=== PATIENT | female | born 1990 | race Caucasian/White ===

== ENCOUNTER 2017-03-04 10:33 | Inpatient (IN) ==
[2017-03-04] MEDS ORDERED: MEPERIDINE 50 MG/1 ML VIAL IM PRN (10:53)
[2017-03-04 11:33] LABS: Basophils % 0.2 % (0.0-0.8); Eosinophils # 0.1 10*3/uL (0.0-0.87); Eosinophils % 0.8 % (0.00-10.9); Hematocrit 36.1 VOL% (35.7-47.0); Hemoglobin 12.6 GM/DL (12.0-16.0); Immature Granulocytes % 0.6 %; Immature Granulocytes Absolute 0.07 #; Lymphocytes # 2.1 10*3/uL (1.4-4.0); Mean Corpuscular HGB Conc 34.9 GM/DL (32-36); Mean Corpuscular Hemoglobin 30 PG (27-34); Mean Corpuscular Volume 85.5 FL (87-102); Mean Platelet Volume 10.4 FL (9.6-12.0); Monocytes # 0.8 10*3/uL (0.11-0.8); Monocytes % 6.8 % (1.7-12.7); Neutrophils # 8.7 10*3/uL (1.4-7.4); Neutrophils % 73.6 % (38.7-73.9); Platelet Count 218 T/CUMM (130-400); Red Blood Count 4.22 MC/CUMM (3.8-5.5); Red Cell Distribution Width 13.6 % (9.3-17.3); White Blood Count 11.8 T/CUMM (4-12)
[2017-03-04] MEDS: LACTATED RINGERS 1,000 ML IV SCH ×3 (11:45→23:37)
[2017-03-04 12:06] LABS: Alanine Aminotransferase 14 U/L (13-56); Albumin 2.9 G/DL (3.4-5.0); Alkaline Phosphatase 134 U/L (45-117); Aspartate Amino Transferase 13 U/L (0-37); Bilirubin,Total < 0.39 MG/DL (0.2-1.0); Blood Urea Nitrogen 6 MG/DL (7-18); Calcium 8.4 MG/DL (8.5-10.1); Glucose 97 MG/DL (74-106); Osmolality,Calculated 272.7 MOS/KG (273-304); Potassium 3.8 MMOL/L (3.5-5.1); Sodium 138 MMOL/L (136-145); Total Protein 7.7 G/DL (6.4-8.3); Uric Acid 4.7 MG/DL (2.6-6.0)
[2017-03-04] MEDS ORDERED: MEPERIDINE 50 MG/1 ML VIAL IV PRN (21:04)
[2017-03-04] MEDS: ONDANSETRON 4 MG/2 ML VIAL IV PRN (21:06)
[2017-03-04] MEDS: BUTORPHANOL 2 MG/ML VIAL IV PRN (23:33)
[2017-03-05] MEDS ORDERED: OXYTOCIN/LR 30 UNIT/1,000 ML BAG IV ONE (02:08)
[2017-03-05] MEDS ORDERED: OXYTOCIN/LR 20 UNIT/1,000 ML BAG IV ONE ×3 (02:32→08:51)
[2017-03-05] MEDS: ONDANSETRON 4 MG/2 ML VIAL IV PRN (02:36)
[2017-03-05] MEDS: BUTORPHANOL 2 MG/ML VIAL IV PRN (02:38)
[2017-03-05] MEDS ORDERED: OXYTOCIN/LR 20 UNIT/1,000 ML BAG IV SCH (03:00)
[2017-03-05] MEDS ORDERED: CITRIC ACID/SODIUM CITRATE 30 ML UDCUP PO ONE (03:10)
[2017-03-05] MEDS ORDERED: FAMOTIDINE 20 MG/2 ML VIAL IV ONE (03:10)
[2017-03-05] MEDS ORDERED: ePHEDrine 50 MG/ML AMP IV PRN (03:10)
[2017-03-05] MEDS ORDERED: fentaNYL 2 MCG/ROPIV 0.2% EPID 150 ML EPIDURAL SCH (03:11)
[2017-03-05] MEDS: LACTATED RINGERS 1,000 ML IV SCH (05:05)
[2017-03-05] MEDS ORDERED: TERBUTALINE 1 MG/1 ML VIAL SUBCUT ONE (05:57)
[2017-03-05] MEDS ORDERED: TERBUTALINE 1 MG/1 ML VIAL SUBCUT PRN (06:00)
[2017-03-05 06:38] LABS: Apearance,Urine Slightly Hazy (Clear); Bacteria,Urine Occasional /HPF (Few); Bilirubin,Urine Negative (Negative); Blood, Urine Negative (Negative); Glucose,Urine (UA) Negative (Negative); Ketones,Urine 80 mg/dL (Negative); Mucus,Urine Few /LPF (Occasional); Nitrite,Urine Negative (Negative); Protein,Urine 30 MG/DL; RBC,Urine 3 /HPF (0-4); Squamous Epithelial Cell,Urine Occasional /HPF (0-10); Urine Color Yellow (Yellow); Urine Specific Gravity 1.018 (1.001-1.035); Urine Urobilinogen < 2.0 EU/DL (0.2-1.0); WBC,Urine 5 /HPF (0-6)
[2017-03-05] MEDS ORDERED: PROMETHAZINE 25 MG/1 ML VIAL IM PRN (07:03)
[2017-03-05] MEDS ORDERED: ceFAZolin 2,000 MG in PREMIX 1 EACH IV ONE (08:04)
--- NOTE | 2017-03-05 08:14 | OB/GYN History & Physical ---
History of Present Illness Chief complaint: 39 weeks History of present illness: Ms. Knight is a 26 year old female Primigravida admitted at 39 weeks gestation for induction of labor at term. Patient complains of insomnia and overall exhaustion due to inability to sleep Home Medications Medication Instructions Recorded Confirmed Type Ferrous Sulfate [Iron] 1 tablet PO DAILY 03/04/17 03/04/17 History Vits #90/Iron Fum/FA 1 tablet PO DAILY 03/04/17 03/04/17 History [ Formula Tablet] Allergies Allergy/AdvReac Type Severity Reaction Status Date / Time No Known Allergies Allergy Verified 03/04/17 10:51 12 point system: reviewed and no additional remarkable complaints except as stated Medical,Surgical,& Family Hx - Surgical History Thoracic Surgeries: Patient denies;: Organ Transplant - Family History Family History: Reports;: Family Diabetes (MGM, PGM) Denies;: Family Anesthesia Reaction, Family Cancer, Family Heart Disease, Family Hematology, Family Hypertension, Family Psychiatric Problems, Family Stroke, Additional Family History - Social History Smoking Status: Never smoker Frequency of Alcohol Use: None 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 - Constitutional Vitals: Vital Signs Temp Pulse Resp BP Pulse Ox 03/05/17 04:00 97.4 F L 76 22 141/68 03/05/17 00:00 97.1 F L 74 18 130/78 03/04/17 20:00 97.8 F 90 20 143/78 03/04/17 16:00 98.2 F 97 H 20 122/58 03/04/17 12:00 97.4 F L 101 H 18 119/73 97 General appearance: mild distress - Antepartum / Post Antepartum Exam Cervix - Dilatation: 3 cm Effacement: 70% Station: -1 Rupture: Spontaneous rupture membranes with clear fluid Presentation: Vertex Heart Rate: Baseline 140s with repetitive late decelerations [place]: contractions every 2-3 minutes - Head Head exam: Present: normocephalic - Neck Neck exam: Present: normal inspection - Respiratory Respiratory exam: Present: clear to auscultation bilaterally - Cardiovascular Cardiovascular exam: Present: regular rate and rhythm - GI/Abdominal GI/Abdominal exam: Present: normal bowel sounds, soft - Extremities Exam Extremities exam: Present: normal inspection - Back Exam Back exam: Present: normal inspection - Neurological Exam Neurological exam: Present: alert, oriented X3 - Psychiatric Psychiatric exam: Present: normal affect, normal mood - Skin Skin exam: Present: normal color, warm Assessment and Plan (1) 39 weeks gestation of Status: Acute Current Visit: Yes (2) Late deceleration of heart rate Status: Acute Assessment and plan: Despite intrauterine resuscitative measures, the patient continued to have late decelerations prompting for decision proceed with section. Patient and family in agreement with management plan. Patient prepped for section Current Visit: Yes Results - Labs CBC & BMP: 03/04/17 11:21 03/04/17 11:21
[2017-03-05] MEDS ORDERED: RHO(D) IMMUNE GLOBULIN 300 MCG SYRINGE IM ONE (08:51)
[2017-03-05] MEDS ORDERED: ACETAMINOPHEN 325 MG TABLET PO PRN (08:51)
[2017-03-05] MEDS ORDERED: ONDANSETRON 4 MG/2 ML VIAL IV PRN (08:51)
--- NOTE | 2017-03-05 08:57 | Operative Note ---
Date of procedure: 03/05/17 Procedure Preformed: Following informed consent patient taken to the operating room where epidural anesthesia was found to be adequate. She is prepped and draped in usual fashion placed in dorsal supine position with a leftward tilt. A Pfannenstiel skin incision made with scalpel and carried through to the underlying layer fascia with Bovie. The fascia incision was excised in the midline and extended laterally with Phelps scissors.. The inferior and superior aspects of the fascial incision were grasped with [place] clamps, elevated and the rectus muscles dissected off bluntly. The rectus muscles were then in the midline and the peritoneum identified and entered with Metzenbaum scissors. This was then extended superiorly and inferiorly with good visualization of the bladder. The bladder blade was then inserted and the vesicouterine peritoneum identified and entered with Metzenbaum scissors. This was then extended laterally and the bladder flap created digitally. The bladder blade was then reinserted and the uterus incised in transverse fashion with scalpel. The infant's head was then delivered atraumatically. The nose mouth bulb suctioned. Cord clamped cut and the handed off to waiting nurses. Cord blood was sent. The placenta was then removed manually and the uterus cleared all clots and debris. The uterine incision was repaired with #1 Vicryl in a running locked fashion. A second layer of the same suture was used to obtain excellent hemostasis. The gutters were cleared of all clots and debris and once again hemostasis was found to be satisfactory. Therefore all instruments were removed from the abdomen. The fascia was repaired with [0] Vicryl in a running fashion. The skin was closed with Ensorb cesar. At the end of the procedure all sponge lap needle counts correct 2. Baby and mother in stable condition. Surgeon / Physician: Beverly Burleson Post-op diagnosis: same Findings: Liveborn male infant weight 8 lbs. 8 oz. Apgars 6 and 7 Specimens: other (Cord blood) Estimated blood loss: other (400 mL) Condition: stable Anesthesia: epidural Disposition: floor
[2017-03-05 08:58] LABS: Cord Arterial Blood HCO3 13.4 MMOL/L
[2017-03-05] MEDS ORDERED: LACTATED RINGERS 1,000 ML IV SCH (09:00)
[2017-03-05] MEDS ORDERED: fentaNYL 100 MCG/2 ML VIAL ONE (09:00)
[2017-03-05 09:03] LABS: Cord Venous Blood HCO3 13.9 MMOL/L; Cord Venous Blood PCO2 86.5 MMHG
[2017-03-05 09:16] LABS: Cord Venous Blood PO2 6.7
[2017-03-05] MEDS: IBUPROFEN 800 MG TABLET PO PRN ×2 (12:51→21:16)
[2017-03-05 16:43] LABS: Basophils % 0.2 % (0.0-0.8); Eosinophils % 0.2 % (0.00-10.9); Hematocrit 32.7 VOL% (35.7-47.0); Hemoglobin 11.4 GM/DL (12.0-16.0); Immature Granulocytes % 0.7 %; Immature Granulocytes Absolute 0.12 #; Lymphocytes # 2.6 10*3/uL (1.4-4.0); Lymphocytes % 14.4 % (21.3-54.2); Mean Corpuscular HGB Conc 34.9 GM/DL (32-36); Mean Corpuscular Hemoglobin 30 PG (27-34); Mean Corpuscular Volume 84.9 FL (87-102); Mean Platelet Volume 10.5 FL (9.6-12.0); Monocytes # 1.4 10*3/uL (0.11-0.8); Monocytes % 7.6 % (1.7-12.7); Neutrophils # 13.9 10*3/uL (1.4-7.4); Neutrophils % 76.9 % (38.7-73.9); Platelet Count 168 T/CUMM (130-400); Red Blood Count 3.85 MC/CUMM (3.8-5.5); Red Cell Distribution Width 13.6 % (9.3-17.3)
[2017-03-05] MEDS: MULTIVITAMIN (PRENATAL) TABLET PO SCH (21:00)
[2017-03-05] MEDS: DOCUSATE SODIUM 100 MG CAPSULE PO SCH (21:16)
[2017-03-06 06:30] LABS: Basophils % 0.2 % (0.0-0.8); Eosinophils # 0.2 10*3/uL (0.0-0.87); Eosinophils % 1.2 % (0.00-10.9); Hematocrit 31.3 VOL% (35.7-47.0); Hemoglobin 10.5 GM/DL (12.0-16.0); Immature Granulocytes % 0.6 %; Immature Granulocytes Absolute 0.08 #; Lymphocytes % 15.3 % (21.3-54.2); Mean Corpuscular HGB Conc 33.5 GM/DL (32-36); Mean Corpuscular Hemoglobin 29 PG (27-34); Mean Corpuscular Volume 86.9 FL (87-102); Mean Platelet Volume 10.4 FL (9.6-12.0); Monocytes % 7.7 % (1.7-12.7); Platelet Count 143 T/CUMM (130-400); Red Cell Distribution Width 13.7 % (9.3-17.3); White Blood Count 13.3 T/CUMM (4-12)
[2017-03-06 06:52] LABS: Hypochromasia Slight; Lymphocytes 8 % (20-55); Platelet Estimate Adequate; Segmented Neutrophils 86 % (50-85); Total Cells Counted 100
--- NOTE | 2017-03-06 08:03 | OB/GYN Progress Note ---
Assessment and Plan (1) 39 weeks gestation of Status: Acute Current Visit: Yes (2) Late deceleration of heart rate Status: Acute Assessment and plan: Despite intrauterine resuscitative measures, the patient continued to have late decelerations prompting for decision proceed with section. Patient and family in agreement with management plan. Patient prepped for section Current Visit: Yes (3) Delivered by section Status: Acute Assessment and plan: Routine and postoperative care Current Visit: Yes AWNING SPREADER - PN: Subj Interval history: No complaints. Pain well controlled. Patient is attempting to breast-feed. Exam AWNING SPREADER - Constitutional Vitals: Vital Signs Temp Pulse Resp BP Pulse Ox 03/06/17 07:34 97.3 F L 91 H 20 121/75 97 03/06/17 06:00 20 03/06/17 05:00 18 03/06/17 04:00 97.2 F L 85 18 120/83 99 03/06/17 03:00 18 03/06/17 02:00 18 03/06/17 01:00 18 03/06/17 00:00 98.1 F 93 H 18 136/76 99 03/05/17 23:00 18 03/05/17 20:00 97.5 F L 81 20 106/64 99 03/05/17 18:29 20 03/05/17 17:45 20 03/05/17 17:00 20 03/05/17 15:48 97.8 F 83 18 119/71 97 03/05/17 13:30 97.8 F 85 18 130/65 96 03/05/17 12:30 99.1 F 84 18 130/78 99 03/05/17 12:00 84 18 122/75 98 03/05/17 11:30 98.1 F 82 18 125/75 97 General appearance: no acute distress - Gyencological / Post Surgical Post Surgical Exam Extremities AWNING SPREADER: Present: normal Abdomen obstetrics progress note: Present: normal appearance, soft Incision OB: Present: normal, intact - Head Head exam: Present: normocephalic - Neck Neck exam: Present: normal inspection - Respiratory Respiratory exam: Present: clear to auscultation bilaterally - Cardiovascular Cardiovascular exam: Present: regular rate and rhythm - GI/Abdominal GI/Abdominal exam: Present: normal bowel sounds, soft (Uterus firm and well contracted at the level of the umbilicus) - Extremities Exam Extremities exam: Present: normal inspection - Back Exam Back exam: Present: normal inspection - Neurological Exam Neurological exam: Present: alert, oriented X3 - Psychiatric Psychiatric exam: Present: normal affect, normal mood - Skin Skin exam: Present: normal color, warm Results - Labs CBC & BMP: 03/06/17 06:07 03/04/17 11:21
[2017-03-06] MEDS: SIMETHICONE CHEW 80 MG TABLET PO PRN ×2 (08:44→20:08)
[2017-03-06] MEDS: MULTIVITAMIN (PRENATAL) TABLET PO SCH (08:44)
[2017-03-06] MEDS: DOCUSATE SODIUM 100 MG CAPSULE PO SCH (08:44)
[2017-03-06] MEDS: MAGNESIUM HYDROXIDE SUSP 30 ML UDCUP PO PRN (08:44)
[2017-03-06] MEDS ORDERED: INFLUENZA VIRUS VACCINE 0.5 ML SYRINGE IM ONE (11:10)
[2017-03-06] MEDS: IBUPROFEN 800 MG TABLET PO PRN (11:22)
--- NOTE | 2017-03-06 14:38 | Anesthesia Post-Op ---
Anesthesia Post OP - Post Ansesthetic Evaluation Patient seen in post op: Yes Resp: within normal limits CV: within normal limits Mental: within normal limits Temp: within normal limits [id number]-[id number]: within normal limits Nausea and Vomiting: within normal limits Pain: within normal limits
[2017-03-07] MEDS: IBUPROFEN 800 MG TABLET PO PRN ×3 (00:55→20:20)
--- NOTE | 2017-03-07 09:11 | OB/GYN Progress Note ---
Assessment and Plan (1) 39 weeks gestation of Status: Acute Current Visit: Yes (2) Late deceleration of heart rate Status: Acute Assessment and plan: Despite intrauterine resuscitative measures, the patient continued to have late decelerations prompting for decision proceed with section. Patient and family in agreement with management plan. Patient prepped for section Current Visit: Yes (3) Delivered by section Status: Acute Assessment and plan: Routine and postoperative care Current Visit: Yes SIGNALER - PN: Subj Interval history: No complaints Exam SIGNALER - Constitutional Vitals: Vital Signs Temp Pulse Resp BP Pulse Ox 03/07/17 07:49 97.6 F 83 20 131/75 96 03/07/17 06:57 18 03/07/17 04:00 97.6 F 85 18 139/78 99 03/07/17 03:00 18 03/07/17 00:00 97.8 F 103 H 18 145/73 99 03/06/17 20:00 98.8 F 95 H 18 149/83 99 03/06/17 18:37 20 03/06/17 18:00 20 03/06/17 17:00 20 03/06/17 16:00 20 03/06/17 15:39 97.9 F 82 20 123/69 98 03/06/17 15:00 20 03/06/17 14:00 20 03/06/17 13:00 20 03/06/17 12:00 20 03/06/17 11:31 98.3 F 94 H 20 152/70 98 03/06/17 11:00 20 03/06/17 10:00 20 - Gyencological / Post Surgical Post Surgical Exam Extremities SIGNALER: Present: normal Abdomen obstetrics progress note: Present: normal appearance, soft Incision OB: Present: normal, dry, intact - Head Head exam: Present: normocephalic - ENT ENT exam: Present: normal exam - Neck Neck exam: Present: normal inspection - Respiratory Respiratory exam: Present: clear to auscultation bilaterally - Cardiovascular Cardiovascular exam: Present: regular rate and rhythm - GI/Abdominal GI/Abdominal exam: Present: normal bowel sounds, soft - Extremities Exam Extremities exam: Present: normal inspection - Back Exam Back exam: Present: normal inspection - Neurological Exam Neurological exam: Present: alert, oriented X3 - Psychiatric Psychiatric exam: Present: normal affect, normal mood - Skin Skin exam: Present: normal color, warm Results - Labs CBC & BMP: 03/06/17 06:07 03/04/17 11:21
[2017-03-07] MEDS: DOCUSATE SODIUM 100 MG CAPSULE PO SCH ×3 (10:09→20:35)
[2017-03-07] MEDS: MAGNESIUM HYDROXIDE SUSP 30 ML UDCUP PO PRN (10:09)
[2017-03-07] MEDS: SIMETHICONE CHEW 80 MG TABLET PO PRN (10:09)
[2017-03-07] MEDS: MULTIVITAMIN (PRENATAL) TABLET PO SCH (10:20)
[2017-03-08 09:19] VITALS: BP 138/77
[2017-03-08] MEDS: MULTIVITAMIN (PRENATAL) TABLET PO SCH (10:08)
[2017-03-08] MEDS: IBUPROFEN 800 MG TABLET PO PRN (10:08)
[2017-03-08] MEDS: DOCUSATE SODIUM 100 MG CAPSULE PO SCH (10:08)
[2017-03-08] MEDS ORDERED: DIPH/TET/ACEL PERT BOOSTER VACCINE 0.5 ML VIAL IM ONE (10:12)
--- NOTE | 2017-03-08 11:43 | Discharge Summary ---
Hospital Course - Hospital Course Hospital Course: This is a 26-year-old primigravida admitted at term for induction of labor. She subsequently underwent primary section secondary to failure to progress and CPD with nonreassuring heart tracing. Hospital course was unremarkable operative day #3 she was ready for discharge. Patient plans for OCPs as her method of contraception. Diagnosis - Discharge Diagnosis (1) 39 weeks gestation of Status: Acute (2) Late deceleration of heart rate Status: Acute (3) Delivered by section Status: Acute Specialty Discharge - Follow Up or Referrals Follow up with: Beverly Burleson MD [Physician] - 03/21/17 1:30 pm Discharge Plan - Discharge Data Disposition: Disch To Home/Self Care Condition at Discharge: Stable Discharge Diet: advance to your usual diet Activity: no lifting Hygiene: may shower Weight Bearing at Discharge: weight bear as tolerated Driving: not until seen by doctor Contact your physician if you experience:: fever over 101, Difficulty voiding, Redness or swelling, Nausea/Vomiting, Shortness of breath, Bleeding, pain uncontrolled by pain medications - Discharge Medications New HYDROcodone/ACETAMIN 5-325 [[place] 5-325] 2 tablet PO Q6H PRN #40 tablet PRN Reason: Pain Severe (8-10) No Action Vits #90/Iron Fum/FA [ Formula Tablet] 1 tablet PO DAILY Ferrous Sulfate [Iron] 1 tablet PO DAILY - Follow Up or Referral Follow Up: Beverly Burleson MD [Physician] - 1 Week - Forms/Instructions Exam - Constitutional Vitals: Period Temp Pulse Resp BP Sys/Jacob Pulse Ox Last 24 Hr 97.3 F-98.6 F 76-90 18-20 128-148/70-86 97-99 General appearance: no acute distress - Head Head exam: Present: normocephalic - ENT ENT exam: Present: normal exam - Neck Neck exam: Present: normal inspection - Respiratory Respiratory exam: Present: clear to auscultation bilaterally - Cardiovascular Cardiovascular exam: Present: regular rate and rhythm - GI/Abdominal GI/Abdominal exam: Present: normal bowel sounds, soft, other (Incision clean dry and intact. Uterus firm and well contracted at the level of the umbilicus) - Extremities Exam Extremities exam: Present: normal inspection - Back Exam Back exam: Present: normal inspection - Neurological Exam Neurological exam: Present: alert, oriented X3 - Psychiatric Psychiatric exam: Present: normal affect, normal mood - Skin Skin exam: Present: normal color, warm DS: Provider Date of admission: 03/04/17 10:34 Primary care physician: . No PCP Attending physician on admission: Beverly Burleson MD Consults: 03/04/17 10:51 Consult to Anesthesiology [CONS] Routine Consulting Provider: Reason for Anesthesiology: Epidural Consult Comment: Epidural for pain managment 03/05/17 08:51 Consult to Soft Work Wrapper Examiner [CONS] Routine Consult Soft Work Wrapper Examiner: Breast Feeding Discharging clinician: Beverly Burleson MD
== END 2017-03-08 12:45 | disposition home or self-care (01) | DRG 766 ==
LOC: N.LDOUT 10:33 → N.LD 10:34 → N.OB 03-05 11:15
PROVIDERS: ADMIT Obstetrics & Gynecology; ATTEND Obstetrics & Gynecology
PROC: LDCSECT (ICD-10-PCS; 2017-03-05 08:05)